=== PATIENT | male | born 1990 | race Caucasian/White ===

== ENCOUNTER 2018-05-13 07:40 | Emergency (ER) | payer BC, OTHER ==
--- NOTE | 2018-05-13 07:45 | ED Physician Documentation ---
General Adult - HISTORIAN Historian: patient - HPI Stated Complaint: laceration Chief Complaint: Laceration/Recheck/Suture Onset: minutes (45) Timing: still present Severity: mild Further Comments: yes (fell on step at work and cut his leg - had tetanus 4 years ago at work) - ROS CONST: no problems - PAST HX Past History: none Immunizations: UTD Allergies/Adverse Reactions: Allergies Allergy/AdvReac Type Severity Reaction Status Date / Time cefaclor [From Ceclor] Allergy Verified 05/13/18 09:03 Home Medications: Ambulatory Orders Medication Instructions Recorded NK 05/13/18 - SOCIAL HX Smoking History: non-smoker Alcohol Use: none Drug Use: none - FAMILY HX Family History: No - VITAL SIGNS Vital Signs: Vital Signs Temp Pulse Resp BP Pulse Ox 72 14 114/52 99 05/13/18 08:59 05/13/18 08:59 05/13/18 08:59 05/13/18 07:41 - REVIEWED ASSESSMENTS Nursing Assessment Reviewed: Yes Vitals Reviewed: Yes Procedures Wound Location: lower extremity Wound's Depth, Shape: superficial Wound Explored: clean Betadine Prep?: No Anesthesia: 1% Lidocaine (8) Wound Debrided: minimal Wound Repaired With: sutures Suture Size/Type: 4:0 (5) Number of Sutures: 5 Layer Closure?: No ED Results Lab/Radiology - Orders Orders: ED Orders Category Date Time Status Apply/change dressing NOW Care 05/13/18 07:46 Active Cleanse with NS and Chlorhexid 1T Care 05/13/18 07:46 Active Triple Antibiotic Ointment 1T Care 05/13/18 07:46 Active Diph,Pertuss(Acell),Tet Vac/Pf [Adacel] Med 05/13/18 07:46 Discontinued 0.5 ml IM .ONCE ONE Lidocaine 1% 5ml(IM or SUTURE) [Xylocaine] Med 05/13/18 07:46 Discontinued 50 mg IJ NOW ONE General Adult Physical Exam - PHYSICAL EXAM GENERAL APPEARANCE: no distress EENT: eye inspection normal RESPIRATORY: no resp distress, chest non-tender CVS: reg rate & rhythm, heart sounds normal ABDOMEN: soft SKIN: warm/dry, other (laceration left lower leg approx 4 cm clean ) EXTREMITIES: non-tender, normal range of motion, no edema NEURO: oriented X3, CN's nml as tested Discharge Clincal Impression: Laceration of left lower leg Qualifiers: Encounter type: initial encounter Qualified Code(s): S81.812A - Laceration without foreign body, left lower leg, initial encounter Referrals: Primary Doctor,No [Primary Care Provider] - 2 Days Comments: 1. Keep area clean an dry 2. Monitor for s/sx of infection 3. Follow up with PCP in 7-10 days for suture removal (5) 4. Return to ER for any concerns Condition: Stable Disposition: 01 HOME, SELF-CARE Decision to Admit: NO Date of Decison to Admit: 05/13/18 Decision Time: 08:26
[2018-05-13] MEDS ORDERED: DIPH,PERTUSS(ACELL),TET VAC/PF 0.5 ML DISP.SYRIN IM ONE (07:46)
[2018-05-13] MEDS ORDERED: Lidocaine 1% 5ml(IM or SUTURE)(PAIN CLINIC) IJ ONE (07:46)
[2018-05-13 08:16] VITALS: BP 114/52
== END 2018-05-13 08:30 | disposition home or self-care (01) ==
LOC: ED 07:40
DX: S81.812A Laceration without foreign body, left lower leg, initial encounter (principal); W19.XXXA Unspecified fall, initial encounter; Y92.9 Unspecified place or not applicable; Y93.9 Activity, unspecified; Y99.9 Unspecified external cause status
CPT/HCPCS: 12002; 96372